=== PATIENT | male | born 1955 | race Caucasian/White ===

== ENCOUNTER 2019-09-02 13:08 | Inpatient (IN) | payer MEDICARE ==
[~2019-09-02] VITALS: Ht 177.8 cm; Wt 92.4 kg
[2019-09-02 14:45] LABS: Source, Urine Clean Catch
[2019-09-02 14:58] LABS: Blood, Urine 1+ (Neg); Glucose Qualitative, Urine Neg (Neg); Ketones, Urine 2+ (Neg); Leukocyte Esterase, Urine 1+ (Neg); Nitrite, Urine Neg (Neg); Protein, Urine 2+ (Neg); Urobilinogen, Urine 2+ (Normal)
[2019-09-02 15:00] LABS: BASOPHILS ABSOLUTE AUTO 0.03 K/mm3 (0.00-0.23); BASOPHILS PERCENT AUTO 0 % (0-2); EOSINOPHILS PERCENT AUTO 0 % (0-6); Hematocrit 44.2 % (37.0-53.0); Hemoglobin 14.2 g/dL (13.5-17.5); IMMATURE GRAN ABSOLUTE AUTO 0.11 K/mm3 (0.00-0.10); IMMATURE GRAN PERCENT AUTO 1 % (0-1); LYMPHOCYTES ABSOLUTE AUTO 1.42 K/mm3 (0.84-5.20); LYMPHOCYTES PERCENT AUTO 7 % (21-46); MONOCYTES ABSOLUTE AUTO 0.67 K/mm3 (0.16-1.47); MONOCYTES PERCENT AUTO 3 % (4-13); Mean Corpuscular HGB 29.5 pg (26.0-34.0); Mean Corpuscular HGB Conc 32.1 g/dL (31.5-36.5); Mean Corpuscular Volume 92 fL (80-100); Mean Platelet Volume 9.3 fL (9.1-12.4); NEUTROPHILS ABSOLUTE AUTO 18.05 K/mm3 (1.96-9.15); NEUTROPHILS PERCENT AUTO 89 % (41-73); Platelet Count 268 K/mm3 (150-400); RDW Coefficient Variation 14.3 % (11.7-14.2); RDW Standard Deviation 48.5 fL (35.1-46.3); Red Blood Cell Count 4.82 M/mm3 (4.30-5.90); White Blood Cell Count 20.28 K/mm3 (4.00-11.30)
[2019-09-02 15:04] LABS: Bilirubin, Urine 1+ (Neg)
[2019-09-02 15:05] LABS: Appearance, Urine Clear (Clear); Color, Urine Amber (P-Yellow)
[2019-09-02 15:06] LABS: Mucus Light (0-Heavy)
[2019-09-02 15:12] LABS: Bacteria Few /hpf; Squamous Epithelial Cells Few /hpf (Few)
[2019-09-02 15:17] LABS: Alanine Aminotransfer (ALT/SGP 18 U/L (12-78); Albumin, Blood 3.2 g/dL (3.4-5.0); Albumin/Globulin Ratio 0.7 (0.8-1.8); Alk Phos 75 U/L (50-136); Anion Gap 9 mmol/L (6-16); Aspartate Aminotrans (AST/SGOT 15 U/L (12-37); Bilirubin, Total 0.7 mg/dL (0.1-1.0); Blood Urea Nitrogen 15 mg/dL (8-24); Bun/Creatinine Ratio 17.1 (12.0-20.0); CO2, Blood 23 mmol/L (21-32); Chloride, Blood 105 mmol/L (98-108); Creatinine, Blood 0.88 mg/dL (0.60-1.20); Globulin, Blood 4.4 g/dL (2.2-4.0); Glomerular Filtration Rate >60 (60-); Glucose, Blood 103 mg/dL (70-99); Potassium, Blood 4.3 mmol/L (3.5-5.5); Sodium, Blood 137 mmol/L (136-145); Total Protein, Blood 7.6 g/dL (6.4-8.2)
[2019-09-02] MEDS ORDERED: OMEP20ER PO (15:38)
--- NOTE | 2019-09-02 20:10 | NUR ---
ADMIT NOTE ADMIT 63 YEAR OD MALE TO ICU [address] LOCKE SERVICE PER NATHALY VIA ERTRANSFER TO BED USING SLIDER SHEET. MONITOR PLACED SHOWING SINUS RHYTHM/SINUS TACH HEART RATE 90'S-100'S. LUNG SOUNDS CLEAR RESPIRATIONS REGULAR AND EASY ON ROOM AIR SPO2 98-100 % ABDOMEN TENDER ESPECIALLY R LOWER QUAD, WITH HYPO ACTIVE BOWEL SOUNDS , BLOOD CONSENT AND RELEASE OF MEDICAL INFORMATION COMPLETED. MURPHY WELL IN BED. EXPLAINED NEED FOR COMPLETE BEDREST. WITH UNDERSTANDING VERBALIZED. PEDAL PULSES PRESENT, NO EDEMA NOTED. CONTINUE TO MONITOR AND REPORT CHANGE IN PATIENT CONDITION. JEREMIAH CRIMINAL JUDGE AT BEDSIDE ORDERS NOTED.
--- NOTE | 2019-09-02 21:10 | NUR ---
DR ROMERO AT BEDSIDE. ORDERS NOTED. CHANGE TO CLEAR LIQIDS UNTIL MIDNOC, AND CHANGE STATUS TO PCU. CONTINUE TO MONITOR AND REPORT CHANGE IN PATIENT CONDITION
--- NOTE | 2019-09-02 23:43 | NUR ---
FAMILY [DAUGHTER] ON PHONE FOR UPDATE. UPDATE GIVEN.
--- NOTE | 2019-09-03 06:04 | NUR ---
SHIFT SUMMARY RESTS QUIETLY WHEN UNDISTURBED MONITOR INTACT SHOWING SINUS RHYTHM. HEART RATE 70'S-90'S. CO 7/10 ABDOMENAL PAIN MEDICATED WITH DILUADID 0.5 MG IV. LUNG SOUNDS REMAIN CLEAR RESPIRATIONS REGULAR AND EASY AT REST SPO2 96-99% ABDOMEN TENDER/PAINFUL. MURPHY IN BED. REPOSITIONS SELF. VERBALIZES CONCERNS QUESTIONS RE COLONOSCOPY PREP AND PROCEDURE SCHEDULED FOR LATER TODAY. INFORMATION GIVEN. CONTINUE TO MONITOR AND REPORT CHANGE IN PATIENT CONDITION. NO S/S OF BLEEDING THIS SHIFT. HAS REMAINED NPO SINCE [facility]
[2019-09-03 06:19] LABS: BASOPHILS ABSOLUTE AUTO 0.03 K/mm3 (0.00-0.23); BASOPHILS PERCENT AUTO 0 % (0-2); EOSINOPHILS ABSOLUTE AUTO 0.01 K/mm3 (0.00-0.68); EOSINOPHILS PERCENT AUTO 0 % (0-6); Hematocrit 41.6 % (37.0-53.0); Hemoglobin 13.5 g/dL (13.5-17.5); IMMATURE GRAN PERCENT AUTO 1 % (0-1); LYMPHOCYTES ABSOLUTE AUTO 1.73 K/mm3 (0.84-5.20); LYMPHOCYTES PERCENT AUTO 10 % (21-46); MONOCYTES ABSOLUTE AUTO 0.57 K/mm3 (0.16-1.47); MONOCYTES PERCENT AUTO 3 % (4-13); Mean Corpuscular HGB 29.3 pg (26.0-34.0); Mean Corpuscular HGB Conc 32.5 g/dL (31.5-36.5); Mean Corpuscular Volume 90 fL (80-100); Mean Platelet Volume 9.4 fL (9.1-12.4); NEUTROPHILS ABSOLUTE AUTO 14.93 K/mm3 (1.96-9.15); NEUTROPHILS PERCENT AUTO 86 % (41-73); Platelet Count 230 K/mm3 (150-400); RDW Coefficient Variation 14.5 % (11.7-14.2); RDW Standard Deviation 48.6 fL (35.1-46.3); White Blood Cell Count 17.37 K/mm3 (4.00-11.30)
[2019-09-03 06:43] LABS: Anion Gap 4 mmol/L (6-16); Blood Urea Nitrogen 11 mg/dL (8-24); Bun/Creatinine Ratio 14.5 (12.0-20.0); CO2, Blood 27 mmol/L (21-32); Calcium, Blood 8.1 mg/dL (8.5-10.1); Chloride, Blood 107 mmol/L (98-108); Creatinine, Blood 0.76 mg/dL (0.60-1.20); Glomerular Filtration Rate >60 (60-); Glucose, Blood 100 mg/dL (70-99); Potassium, Blood 4.1 mmol/L (3.5-5.5); Sodium, Blood 138 mmol/L (136-145)
--- NOTE | 2019-09-03 10:12 | NUR ---
PT ASSESSED AT 0715 THIS AM. ON ASSESSMENT PT AWAKE IN BED, OX3. C/O PAIN TO RLQ ABD 7/10. ABD SLIGHTLY DISTENDED, MOD FIRM, TENDER TO PALP, WITH HYPOACTIVE BT'S T/O. PT DENIES NAUSEA. PT MEDICATED WITH DILAUDID. GOLYTELY STARTED AT 0830. OTHERWISE NPO. PT TO FINISH PREP BY NOON FOR COLONOSCOPY AROUND 1600. VSS. DR GUADALUPE IN TO SEE PT AND CHANGED STATUS TO MED NO TELE. PT BROUGHT UP TO MED FLOOR AT 1010. PT SOMEWHAT DIZZY UPON STANDING, BUT RECOVERED ONCE SITTING. PT ALSO COMPLAINED OF INCREASED CRAMPING TO ABD AFTER STARTING PREP.
--- NOTE | 2019-09-03 10:35 | NUR ---
Case Conference Note Spoke with Bedside RN Alida and discussed case. Planned colonoscopy with biopsy today. Pt's pain has been managed with Ativan Q 2 hours but pain has been incresing with every bowel movement. Pt may need temporary increase in Ativan frequency. Alida also reports Pt is requesting her daughter receive routine updates from hospitalist. Pt has been transfered to medical floor. Palliative Care will F/U after scheduled procedure and biopsy results.
--- NOTE | 2019-09-03 10:55 | NUR ---
TRANSFER PT TRANSFERRED UP FROM ICU VIA WHEELCHAIR, PT IS ALERT AND ORIENTED, INDEPENDENT IN THE ROOM, PT STARTED ON BOWEL PREP, PT REPORTS HE HAS TAKEN IT IN THE PAST, ORIENTED PT TO THE ROOM AND CALL SYSTEM, WILL CONT TO MONITOR
[2019-09-03 14:10] LABS: Cancer Antigen 19-9 178.9 U/mL (2.0-37.0); Carcinoembryonic Antigen 17.3 ng/mL (0.0-3.0); Percent Saturation 8.7 % (20.0-50.0)
--- NOTE | 2019-09-03 14:33 | NUR ---
PROCEDURE PT BEING TAKEN TO DAY SURGERY FOR PROCEDURE NOW
--- NOTE | 2019-09-03 14:54 | NUR ---
Patient states colon prep results clear. History, Chart, Medications and Allergies reviewed before start of procedure. Lungs clear T/O to Auscultation. Patient confirms NPO status and agrees with scheduled surgery. Pre-Op teaching done. Pt verbalizes understanding.
--- NOTE | 2019-09-03 16:18 | NUR ---
PT BACK TO THE ROOM FROM THE COLONOSCOPY, PT CAMILLE WELL, AWAKE, ALERT AND ORIENTED, ABLE TO TRANSFER SELF FROM THE [facility] TO THE BED
--- NOTE | 2019-09-03 17:23 | NUR ---
SUMMARY PT SITTING UP IN BED WATCHING TV, HAS BEEN PLEASANT AND COOPERATIVE WITH CARE T/O THE DAY, TOLERATED PROCEDURE WELL, MED PER EMAR FOR PAIN, HAS DENIED ANY NAUSEA, DR ROMERO DID COME UP TO THE ROOM TO SPEAK WITH THE PT POST PROCEDURE, NO COMPLAINTS, WILL CONTINUE TO MONITOR
--- NOTE | 2019-09-03 20:23 | NUR ---
CLINICAL LEADER REPORTS TEMP (ORAL) 102.9F. PT DENIED PAIN, OTHER THAN SOME "HEARTBURN". TYLENOL 650 MG PO ADMINISTERED PER MD ORDERS, HR ELEVATED. CALL PLACED TO ANESTHESIOLOGIST ASSISTANT, MESSAGE LEFT FOR CALL BACK, PT IS CURRENTLY ON ANTIBIOTICS FOR FURTHER TREATMENT IF NEEDED. CALL LIGHT IN REACH.
--- NOTE | 2019-09-04 00:38 | NUR ---
EARLIER TEMP WAS 102.9F, TYLENOL GIVEN, FLUIDS ENCOURAGED. INTERVENTIONS EFFECTIVE, TEMP DOWN TO 98.3 ORAL LAST TAKEN. WILL CONTINUE TO MONITOR. CALL LIGHT IN REACH
--- NOTE | 2019-09-04 03:12 | NUR ---
SHIFT SUMMARY TEMP WAS ELEVATED AT SHIFT COMMENCE (102.9F). TYLENOL ADMIN PO PER MD ORDERS AND MOTOR ASSEMBLY SUPERVISOR NOTIFIED. IVF WAS CHANGED. INTERVENTIONS WERE EFFECTIVE, LATER TEMP DROPPED TO 98.6F ORAL. HAS BEEN RSETING QUIETLY AT INTERVALS. NO COMPLAINTS VOICED. DAUGHTER CALLED X 2, VOICED CONCERNS FOR FATHER AND REQUESTED MEETING WITH MD IN THE AM. WILL HAVE ANM NURSE FOLLOW UP. CALL LIGHT IN REACH.
[2019-09-04 05:49] LABS: Hematocrit 37.2 % (37.0-53.0); Hemoglobin 11.9 g/dL (13.5-17.5); Mean Corpuscular Volume 91 fL (80-100); Mean Platelet Volume 9.8 fL (9.1-12.4); Platelet Count 206 K/mm3 (150-400); RDW Coefficient Variation 14.8 % (11.7-14.2); RDW Standard Deviation 49.5 fL (35.1-46.3); White Blood Cell Count 14.28 K/mm3 (4.00-11.30)
[2019-09-04 06:05] LABS: Anion Gap 3 mmol/L (6-16); Blood Urea Nitrogen 9 mg/dL (8-24); Bun/Creatinine Ratio 10.7 (12.0-20.0); CO2, Blood 28 mmol/L (21-32); Chloride, Blood 108 mmol/L (98-108); Creatinine, Blood 0.84 mg/dL (0.60-1.20); Glomerular Filtration Rate >60 (60-); Glucose, Blood 102 mg/dL (70-99); Potassium, Blood 3.7 mmol/L (3.5-5.5); Sodium, Blood 139 mmol/L (136-145)
--- NOTE | 2019-09-04 08:09 | NUR ---
09/04/19 0809 Jose Vincent PATIENT DETERMINED TO BE ASA APPROPRIATE FOR PROPOFOL SEDATION PRIOR TO START OF PROCEDURE BY 3-LEAD EKG REVIEWED WITH PHYSICIAN PRIOR TO START OF PROCEDURE.Patient to ENDO 1History, Chart, Medications and Allergies reviewed before start of procedure.MONITOR INTACT WITH CONTINUOUS PULSE OXIMETRY AND INTERMITTENT BP.O2 VIA N/C INTACT THROUGHOUT SEDATION/PROCEDURE.
--- NOTE | 2019-09-04 12:40 | NUR ---
Supportive therapuetic visit this afternoon. Pt reports 5/10 pain in his abdomen. Pt denies anxiety. Non verbal indicators of anxiety is noted as evidenced by Pt expressing concerns of possibility of biopsy being delayed due to adding CT with contrast before biopsy and wanting to get home to start planning. Encouraged Pt to discuss concerns and fears. Pt appears unwilling to discuss topics and states "Alycia had a rough life and suprised that I'm still alive". Pt states his only concern is the scheduling of the biopsy. Pt's lunch arrives and is requesting concerns to be relayed to Dr Loya. Reported concerns to Dr Loya and relayed response to Pt. Pt reports feeling more at ease but is now stating abominal pain has increased since drinking his ensure. Pt is requesting Tylenol for pain management. Spoke with Bedside SHAWN Tyler, discussed case, and relayed request for pain medication. Palliative Care will remain available.
--- NOTE | 2019-09-04 13:37 | NUR ---
PT GOING TO CT SCAN
[2019-09-04 15:25] LABS: International Normalized Ratio 1.16; Prothrombin Time Results 12.3 Sec (9.7-11.5)
--- NOTE | 2019-09-04 16:05 | NUR ---
Initial spiritual care note: Faisal was pleasant and dismissive. He did not wish to discuss anything about this hospitalization. He smiled easily and thanked me for prayer. I will remain available.
--- NOTE | 2019-09-04 17:51 | NUR ---
SUMMARY PT SITTING UP IN BED WATCHING TV, PT HAS BEEN INDEPENDENT IN THE ROOM, PT WENT FOR A CT AND A CT GUIDED BIOPSY TODAY, POSSIBLE DC IN AM, NO FEVERS THIS SHIFT, NO ACUTE CHANGES, WILL CONT TO MONITOR
--- NOTE | 2019-09-05 07:36 | NUR ---
09/05/19 0610 PT STATED HE SLEPT BETTER LAST NIGHT. MEDICATED PER JUN FOR HEARTBURN AND RT ABDOMINAL PAIN. PT DID SPIKE A FEVER TWICE ON THIS SHIFT. IV FLUIDS AT 150ML/HOUR AND ENCOUAGED ORAL INTAKE. VOIDING QS.
[2019-09-05 07:51] LABS: BASOPHILS ABSOLUTE AUTO 0.03 K/mm3 (0.00-0.23); BASOPHILS PERCENT AUTO 0 % (0-2); EOSINOPHILS ABSOLUTE AUTO 0.15 K/mm3 (0.00-0.68); EOSINOPHILS PERCENT AUTO 2 % (0-6); Hematocrit 35.9 % (37.0-53.0); Hemoglobin 11.5 g/dL (13.5-17.5); IMMATURE GRAN ABSOLUTE AUTO 0.03 K/mm3 (0.00-0.10); IMMATURE GRAN PERCENT AUTO 0 % (0-1); LYMPHOCYTES ABSOLUTE AUTO 1.02 K/mm3 (0.84-5.20); LYMPHOCYTES PERCENT AUTO 10 % (21-46); MONOCYTES ABSOLUTE AUTO 0.63 K/mm3 (0.16-1.47); MONOCYTES PERCENT AUTO 6 % (4-13); Mean Corpuscular HGB 28.8 pg (26.0-34.0); Mean Corpuscular Volume 90 fL (80-100); Mean Platelet Volume 9.7 fL (9.1-12.4); NEUTROPHILS ABSOLUTE AUTO 8.13 K/mm3 (1.96-9.15); NEUTROPHILS PERCENT AUTO 81 % (41-73); Platelet Count 193 K/mm3 (150-400); RDW Coefficient Variation 14.7 % (11.7-14.2); RDW Standard Deviation 48.7 fL (35.1-46.3); White Blood Cell Count 9.99 K/mm3 (4.00-11.30)
[2019-09-05 08:07] LABS: Anion Gap 6 mmol/L (6-16); Blood Urea Nitrogen 6 mg/dL (8-24); Bun/Creatinine Ratio 7.4 (12.0-20.0); CO2, Blood 26 mmol/L (21-32); Chloride, Blood 106 mmol/L (98-108); Creatinine, Blood 0.81 mg/dL (0.60-1.20); Glomerular Filtration Rate >60 (60-); Glucose, Blood 93 mg/dL (70-99); Potassium, Blood 3.4 mmol/L (3.5-5.5); Sodium, Blood 138 mmol/L (136-145)
--- NOTE | 2019-09-05 15:29 | NUR ---
Pt reting in bed and reports pain is managed with current regimen. Engaged in theapeutic listening as Pt reports concerns regarding daily upkeep of his chickens, dogs, cats, and vegetable garden. Pt reports his friend is assisting with this while in the hospital. Pt reports understanding of need for remaining in the hospital. Constinued therapeutic listening. Pt reports no other concerns at this time. Spoke with Bedside RN Pallavi and discussed case. Palliative Care will remain available.
--- NOTE | 2019-09-05 20:03 | NUR ---
SHIFT SUMMARY- PT HAS HAD NO ACUTE CHANGE T/O THE SHIFT, DR AVALOS CONSULTED. DR ROMERO CAME TO SEE THE PT THIS MORNING. PT STATED HE HAS BEEN HAVING LIQUID STOOLS SINCE HIS COLONOSCOPY. PT REMAINS ON A CLEAR LIQUID DIET AT THIS TIME. ABD PAIN WITH PALPATION ON THE RIGHT. PT HAS DENIED THE NEED FOR PAIN MEDICATION T/O THE SHIFT AND AGAIN AT SHIFT CHANGE STATED HE HAS CONSTANT PAIN BUT IT IS "NOT BAD ENOUGH" THAT HE NEEDS PAIN MEDICATION. IV LEFT AC SL DRESSING WAS CHANGED TODAY, FLUSHES WELL.
--- NOTE | 2019-09-06 06:10 | NUR ---
SUMMARY PT COMPLAINED OF CONTINUED FREQUENT BM'S EARLY IN SHIFT. PT ALSO COMPLAINED OF SOME RECTAL DISCOMFORT FROM CLEANING SELF. PT DENIES ANY BLOODY STOOLS. PT TX W/ APAP W/ RELIEF. PT HAS SLEPT T/O SHIFT AND HAD NO FEVERS OR CHILLS. PT CURRENTLY SLEEPING AND BREATHING EASY.
[2019-09-06] MEDS ORDERED: OXYC5 PO (10:43)
[2019-09-06] MEDS ORDERED: ACET500 PO (10:44)
--- NOTE | 2019-09-06 14:12 | NUR ---
PT DISCHARGED. PT DISCHARGED IN STABLE CONDITION. BIOPSY RESULTS PENDING. DR. ROMERO TO CALL PT WITH RESULTS. FOLLOW UP PCP & ONCOLOGY APPOINTMENTS MADE FOR PT. MEDS CALL TO PHARMACY. HARD SCRIPT GIVEN TO PT. NO ACUTE CHANGES IN ASSESSMENT AT THIS TIME. VSS. WILL CONTINUE TO MONITOR UNTIL TURNOVER IS COMPLETE.
== END 2019-09-06 14:05 | disposition home or self-care (01) | DRG 872 ==
LOC: ER 13:08 → ICUW 19:27 → MEDS 19:27 → ICUW 19:38 → MEDS 09-03 10:06 → ENPENDDIS 09-06 10:00 → MEDS 09-06 14:05
PROVIDERS: Internal Medicine; Internal Medicine Hematology & Oncology; Nurse Practitioner Acute Care; Physician Assistant; ADMIT Internal Medicine
PROC: 0DBH8ZX Excision of Cecum, Via Natural or Artificial Opening Endoscopic, Diagnostic (ICD-10-PCS; 2019-09-03)
PROC: 0DBU3ZX Excision of Omentum, Percutaneous Approach, Diagnostic (ICD-10-PCS; principal; 2019-09-04)
DX: A41.9 Sepsis, unspecified organism (principal); C78.6 Secondary malignant neoplasm of retroperitoneum and peritoneum; K22.70 Barrett's esophagus without dysplasia; R65.20 Severe sepsis without septic shock; K21.9 Gastro-esophageal reflux disease without esophagitis; M45.9 Ankylosing spondylitis of unspecified sites in spine; M79.7 Fibromyalgia; K57.30 Diverticulosis of large intestine without perforation or abscess without bleeding; K64.4 Residual hemorrhoidal skin tags; G89.29 Other chronic pain; D63.8 Anemia in other chronic diseases classified elsewhere; K52.9 Noninfective gastroenteritis and colitis, unspecified
CPT/HCPCS: 36415; 49180; 71046; 74176; 74177; 77012; 80048; 80053; 81001; 82378; 82728; 83540; 83550; 83605; 83690; 85025; 85027; 85610; 85730; 86301; 86850; 86900; 86901; 87040; 87086; 88305; 88341; 88342; 96374; 96375; 99285-25; A9270; C9113; J1170; J2405; J2543; J2704; J3480; J7120; Q9967

== ENCOUNTER 2020-01-23 09:10 | Day surgery (SDC) | payer MEDICARE ==
[~2020-01-23] VITALS: Ht 177.8 cm; Wt 90.4 kg
[~2020-01-23 09:10] MED LIST: ACET500 PO; FLONASE ALLERG9.9 M2; OMEP20ER PO; OXYC5 PO
== END 2020-01-23 09:40 | disposition home or self-care (01) ==
LOC: ORSCSDS 09:10
PROVIDERS: Internal Medicine Gastroenterology
PROC: 0DBH8ZX Excision of Cecum, Via Natural or Artificial Opening Endoscopic, Diagnostic (ICD-10-PCS; principal; 2020-01-23 08:45)
DX: K63.9 Disease of intestine, unspecified (principal); K64.8 Other hemorrhoids; K57.30 Diverticulosis of large intestine without perforation or abscess without bleeding; M79.7 Fibromyalgia; E78.5 Hyperlipidemia, unspecified; K21.9 Gastro-esophageal reflux disease without esophagitis; Z79.899 Other long term (current) drug therapy
CPT/HCPCS: 88305; J2704; J7120

== ENCOUNTER → 2021-10-04 | Outpatient (CLI) | payer MEDICARE ==
[2021-10-05 14:20] LABS: Adenovirus F 40/41 Not Detected (NOT DETECT); Astrovirus Not Detected (NOT DETECT); Campylobacter Sp Not Detected (NOT DETECT); Cryptosporidium Not Detected (NOT DETECT); Cyclospora Cayetanensis Not Detected (NOT DETECT); E. Coli O157 Not Detected (NOT DETECT); Entamoeba Histolytica Not Detected (NOT DETECT); Enteroaggregative E. coli-EAEC Not Detected (NOT DETECT); Enteropathogenic E. coli-EPEC Not Detected (NOT DETECT); Enterotoxigenic E. coli-ETEC Not Detected (NOT DETECT); Giardia Lamblia Not Detected (NOT DETECT); Norovirus GI/GII Not Detected (NOT DETECT); Plesiomonas Shigelloides Not Detected (NOT DETECT); Rotavirus A Not Detected (NOT DETECT); Salmonella Sp Not Detected (NOT DETECT); Sapovirus Not Detected (NOT DETECT); Shiga Toxin-prod E. coli-STEC Not Detected (NOT DETECT); Shigella/Enteroin E. coli-EIEC Not Detected (NOT DETECT); Vibrio Cholerae Not Detected (NOT DETECT); Vibrio Sp Not Detected (NOT DETECT); Yersinia Enterocolitica Not Detected (NOT DETECT)
== END | disposition home or self-care (01) ==
LOC: LAB 11:00 → LAB SHORT 11:00
PROVIDERS: Nurse Practitioner Family
DX: L29.0 Pruritus ani (principal); R19.7 Diarrhea, unspecified
CPT/HCPCS: 87507

== ENCOUNTER 2024-10-26 11:11 | Emergency (ER) | payer MEDICARE ==
[~2024-10-26] VITALS: Ht 172.7 cm; Wt 81.7 kg
[~2024-10-26 11:11] MED LIST changes: +GERI TUSSIN DM PO
[2024-10-26] MEDS ORDERED: PROAIR RESPICL90 MCG INH (11:36)
[2024-10-26] MEDS ORDERED: DiphenhydrAMINE HCl 50 MG/ML 1ML Vial IV ONE (11:50)
[2024-10-26 11:58] LABS: BASOPHILS ABSOLUTE AUTO 0.04 K/mm3 (0.00-0.23); BASOPHILS PERCENT AUTO 0 % (0-2); EOSINOPHILS ABSOLUTE AUTO 0.02 K/mm3 (0.00-0.68); EOSINOPHILS PERCENT AUTO 0 % (0-6); Hematocrit 46.3 % (37.0-53.0); Hemoglobin 14.7 g/dL (13.5-17.5); IMMATURE GRAN ABSOLUTE AUTO 0.12 K/mm3 (0.00-0.10); IMMATURE GRAN PERCENT AUTO 1 % (0-1); LYMPHOCYTES ABSOLUTE AUTO 1.16 K/mm3 (0.84-5.20); LYMPHOCYTES PERCENT AUTO 8 % (21-46); MONOCYTES ABSOLUTE AUTO 0.95 K/mm3 (0.16-1.47); MONOCYTES PERCENT AUTO 6 % (4-13); Mean Corpuscular HGB Conc 31.7 g/dL (31.5-36.5); Mean Corpuscular Volume 96 fL (80-100); NEUTROPHILS ABSOLUTE AUTO 13.21 K/mm3 (1.96-9.15); NEUTROPHILS PERCENT AUTO 85 % (41-73); NRBC ABSOLUTE 0.00 K/mm3 (0.00-0.02); NRBC Auto 0.0 /100 WBC (0.0-0.2); Platelet Count 148 K/mm3 (150-400); RDW Coefficient Variation 16.8 % (11.7-14.2); RDW Standard Deviation 59.0 fL (35.1-46.3)
[2024-10-26 12:09] LABS: Alanine Aminotransfer (ALT/SGP 29.0 U/L (12-78); Albumin, Blood 3.1 g/dL (3.4-5.0); Albumin/Globulin Ratio 0.7 (0.8-1.8); Anion Gap 8.0 mmol/L (3-11); Aspartate Aminotrans (AST/SGOT 23.0 U/L (12-37); Bilirubin, Total 0.6 mg/dL (0.1-1.0); Blood Urea Nitrogen 17.0 mg/dL (8-24); CO2, Blood 27.0 mmol/L (21-32); Calcium, Blood 8.6 mg/dL (8.5-10.1); Chloride, Blood 107.0 mmol/L (98-108); Creatinine, Blood 0.69 mg/dL (0.60-1.20); Globulin, Blood 4.3 g/dL (2.2-4.0); Glucose, Blood 87.0 mg/dL (70-99); Potassium, Blood 4.6 mmol/L (3.5-5.5); Sodium, Blood 137.0 mmol/L (136-145); Total Protein, Blood 7.4 g/dL (6.4-8.2)
[2024-10-26] MEDS ORDERED: METPRE4DP PO (18:14)
[2024-10-26 18:46] VITALS: BP 135/89
== END 2024-10-26 18:48 | disposition home or self-care (01) ==
LOC: ER 11:11
PROVIDERS: Student in an Organized Health Care Education/Training Program
DX: J38.4 Edema of larynx (principal); D72.829 Elevated white blood cell count, unspecified; K21.9 Gastro-esophageal reflux disease without esophagitis
CPT/HCPCS: 70491; 71046; 80053; 85025; 87081; 93005; 93010; 96374-59; 96375-59; 99285-25; J1200; J2919; Q9967

== ENCOUNTER 2024-12-13 08:04 | Day surgery (SDC) | payer MEDICARE ==
[2024-12-13] VITALS (13 sets, daily range): BP systolic 106–165; BP diastolic 86–103
[~2024-12-13] VITALS: Ht 172.7 cm; Wt 101.2 kg
[~2024-12-13 08:04] MED LIST changes: +METPRE4DP PO; +PROAIR RESPICL90 MCG INH
[2024-12-13] MEDS ORDERED: Oxymetazoline 0.05% Nasal Relief Spray 15mL BTL ONE (08:22)
[2024-12-13] MEDS ORDERED: FentaNYL Citrate 50 MCG/ML 2 ML Injection ONE (09:52)
[2024-12-13] MEDS ORDERED: Dexamethasone Sod Phos 10 MG/ML 1ML VIAL ONE (10:11)
[2024-12-13] MEDS ORDERED: EPINEPhrine HCl 1 MG / ML 30ML Vial ONE (10:27)
[2024-12-13] MEDS ORDERED: Lidocaine 1%-Epineph 1:200000 30 ML SDV ONE (10:34)
[2024-12-13] MEDS ORDERED: Metoclopramide HCl 5MG / ML 2ML Vial IV PRN (10:35)
[2024-12-13] MEDS ORDERED: Morphine Sulfate 4 MG/1 ML Injection IV PRN (10:35)
[2024-12-13] MEDS ORDERED: HYDROmorphone HCl/Pf 1MG SYR IV PRN (10:35)
[2024-12-13] MEDS ORDERED: FentaNYL Citrate 50 MCG/ML 2 ML Injection IV PRN ×2 (10:35→10:40)
[2024-12-13] MEDS ORDERED: Ondansetron HCl 2 MG / ML 2ML Vial IV PRN (10:40)
[2024-12-13] MEDS ORDERED: Sugammadex Sodium 200 MG/2ML SDV (100 MG/ML) ONE ×2 (10:47→10:53)
--- NOTE | 2024-12-13 10:55 | NUR ---
12/13/24 1055 Ginger Henry EPI SOAKED PLEDGLETS USED DURING CASE
[2024-12-13] MEDS ORDERED: OxyCODONE 5 mg/Acetamin 325 mg TABLET PO PRN (11:10)
--- NOTE | 2024-12-13 12:59 | NUR ---
DISCHARGE NOTE PT A&OX4, VSS, TOLERATING PO FLUIDS. PT COUGHING SLIGHTLY INTERMITTANTLY AND STATES IT FEELS LIKE THERE IS A LUMP IN HIS THROAT- CONSISTENT WITH PACU, HAS NOT GOTTEN WORSE. NO BLEEDING NOTED. Patient up to Ambulate independently. Gait steady. Discharge instructions reviewed with patient. Patient verbalizes understanding. Copy given to patient to take home. Discharged via wheelchair to private car for ride home.
== END 2024-12-13 12:40 | disposition home or self-care (01) ==
LOC: ORSCSDS 08:04 → ORSCMMR 08:04 → ORSCSDS 09:30
PROVIDERS: Otolaryngology
PROC: 0CBV8ZX Excision of Left Vocal Cord, Via Natural or Artificial Opening Endoscopic, Diagnostic (ICD-10-PCS; principal; 2024-12-13 09:45)
DX: J38.00 Paralysis of vocal cords and larynx, unspecified (principal); Z85.89 Personal history of malignant neoplasm of other organs and systems; Z87.891 Personal history of nicotine dependence; K21.9 Gastro-esophageal reflux disease without esophagitis
CPT/HCPCS: 88305; 88342; A9270; J0165; J1100; J1720; J2704; J3010; J7120